=== PATIENT | female | born 1965 | race Hispanic/Latino ===

== ENCOUNTER 2017-06-06 17:31 | Emergency (ER) | payer OTHER ==
--- NOTE | 2017-06-06 18:23 | RAD ---
RIGHT RIBS TWO VIEWS PA CHEST RADIOGRAPH: History: Injury. Comparison: None. FINDINGS: Lungs are clear. No pneumothorax or effusion. Cardiac silhouette and mediastinal contours are within normal limits. The ribs are intact. No displaced rib fracture. IMPRESSION: 1. No displaced right sided rib fracture. 2. Clear lungs. POS: [facility]
[2017-06-06] MEDS ORDERED: Ondansetron HCl/PF 4 MG/2 ML Vial ONE ×2 (18:35→20:16)
[2017-06-06] MEDS ORDERED: Fentanyl 100 MCG/2 ML VIAL ONE ×2 (18:35→20:48)
[2017-06-06 18:38] LABS: #Basophils 0.1 thou/uL (0.0-0.2); #Eosinphils 0.1 thou/uL (0.0-0.7); #Lymphocytes 2.7 thou/uL (1.20-3.40); #Monocytes 0.4 thou/uL (0.11-0.59); #Neutrophils 4.3 thou/uL (1.40-6.50); %Basophils 1.4 % (0.0-1.0); %Eosinophils 1.1 % (0.0-10.0); %Lymphocytes 35.1 % (21.0-51.0); %Monocytes 5.8 % (0.0-10.0); Hematocrit 46.5 % (36.0-47.0); Mean Platelet Volume 9.1 fL (7.4-10.4); White Blood Cell (WBC) Count 7.7 thou/uL (4.8-10.8)
[2017-06-06 19:19] LABS: ALT (SGPT) 43 U/L (8-55); AST (SGOT) 35 U/L (5-34); Alkaline Phosphatase 125 U/L (40-150); Anion Gap 11 mmol/L (10-20); BUN (Urea Nitrogen) 14 mg/dL (9.8-20.1); Bilirubin, Total 0.5 mg/dL (0.2-1.2); Calc. Creatinine Clearance 0 mL/min (70-130); Calcium 10.2 mg/dL (7.8-10.44); Carbon Dioxide 28 mmol/L (22-29); Chloride 104 mmol/L (98-107); Estimated GFR-MDRD 80; Globulin 3.2 g/dL (2.4-3.5); Lipase 18 U/L (8-78); Protein, Total 7.8 g/dL (6.0-8.3)
--- NOTE | 2017-06-06 21:32 | CT ---
CT ABDOMEN AND PELVIS WITH CONTRAST: History: Abdominal pain. Comparison: None. FINDINGS: The lung bases are clear. There are none displaced buckle fractures of the anterior 6th and 7th ribs on the right. Liver is unremarkable. Prior cholecystectomy. Spleen is unremarkable. Prior gastric surgery. Aortoiliac contour is normal. Small fat containing umbilical hernia without evidence of inflammation. No dilated loops of large or small bowel. Pancreas is unremarkable. No hydronephrosis. IMPRESSION: 1. Nondisplaced anterior lateral right 6th and 7th rib fractures. 2. Likely a pedunculated posterior fundal fibroid. 3. No acute inflammatory abnormality within the abdomen or pelvis. POS: [facility]
== END 2017-06-06 21:22 | disposition home or self-care (01) ==
LOC: ERS 17:31
DX: S22.41XA Multiple fractures of ribs, right side, initial encounter for closed fracture (principal); I10 Essential (primary) hypertension; Z79.899 Other long term (current) drug therapy; X58.XXXA Exposure to other specified factors, initial encounter
CPT/HCPCS: 74177; 80053; 83690; 85025; 94799; 96361; 96374; 96375; 96376; J2405; J3010